=== PATIENT | male | born 1960 | race Caucasian/White ===

== ENCOUNTER 2017-12-12 05:46 | Inpatient (IN) | payer OTHER ==
[2017-12-12] MEDS ORDERED: SUCCINYLCHOLINE CHLORIDE 100 MG/5 ML SYG IV (07:00)
[2017-12-12] MEDS ORDERED: PROPOFOL 20 ML (10:24)
[2017-12-12] MEDS ORDERED: NEOSTIGMINE 3 MG/3 ML SYRINGE (10:24)
[2017-12-12] MEDS ORDERED: GLYCOPYRROLATE 0.4 MG INJ (10:24)
[2017-12-12] MEDS ORDERED: CEFAZOLIN 1 GM INJ (10:24)
[2017-12-12] MEDS ORDERED: ROCURONIUM 50 MG INJ (10:24)
[2017-12-12] MEDS ORDERED: FENTAnyl 50 MCG/ML VIAL (10:26)
[2017-12-12] MEDS ORDERED: MIDAZOLAM 1 MG/ML 2 ML INJ (10:26)
[2017-12-12] MEDS ORDERED: ONDANSETRON 4 MG INJ (10:26)
[2017-12-12] MEDS ORDERED: DEXAMETHASONE 4 MG/ML 1 ML INJ (10:26)
[2017-12-12] MEDS ORDERED: morphine SULFATE/PF (10 MG/10 ML) INJ (10:27)
[2017-12-12] MEDS ORDERED: ROPIVACAINE 0.2% 20 ML VIAL (11:16)
[2017-12-12] MEDS: BUPIVACAINE 0.25%/EPI (MDV) 50 ML VIAL INJ (11:39)
[2017-12-12] MEDS ORDERED: IPRATROPIUM (NEB) 0.5 MG/2.5 ML AMP HHN (12:00)
[2017-12-12] MEDS ORDERED: hydrALAzine 20 MG INJ IV (12:00)
[2017-12-12] MEDS ORDERED: HYDROmorphONE 1 MG/5 ML IV SYRINGE IV ×3 (12:00)
[2017-12-12] MEDS ORDERED: MIDAZOLAM 1 MG/ML 2 ML INJ IV (12:00)
[2017-12-12] MEDS ORDERED: ALBUTEROL 0.083% (NEB) 2.5 MG/3 ML AMP HHN (12:00)
[2017-12-12] MEDS ORDERED: EPHEDrine SULFATE 50 MG/5 ML SYG IV (12:00)
[2017-12-12] MEDS ORDERED: LABETALOL HCL 20MG INJ IV (12:00)
[2017-12-12] MEDS ORDERED: NALOXONE (0.4 MG/ML) INJ IV (12:00)
[2017-12-12] MEDS ORDERED: ONDANSETRON 4 MG INJ IV ×2 (12:00→15:00)
[2017-12-12] MEDS ORDERED: TRIMETHOBENZAMIDE 100 MG/ML VIAL IM (12:00)
[2017-12-12] MEDS ORDERED: MEPERIDINE 25 MG INJ IV (12:00)
[2017-12-12] MEDS ORDERED: OXYCODONE/ACETAMINOPHEN (5/325) TAB PO ×2 (12:00)
[2017-12-12] MEDS ORDERED: FENTAnyl 50 MCG/ML VIAL IV ×3 (12:00)
[2017-12-12] MEDS ORDERED: DIPHENHYDRAMINE 50 MG INJ IV (12:00)
[2017-12-12] MEDS: POLYMYXIN/BACITRACIN 1L IRRIG IRR (12:39)
[2017-12-12] MEDS ORDERED: SUGAMMADEX SODIUM 200 MG/2 ML VIAL IV ×2 (14:33→14:39)
[2017-12-12] MEDS: Discontinue current oral sulfonylureas (glyburide, glipizide, and/or glimepiride) prior to XX (15:00)
[2017-12-12] MEDS: HYPOGLYCEMIA PROTOCOL when Glucose is <70 mg/dL or symptomatic <90 mg/dL. XX (15:00)
[2017-12-12] MEDS ORDERED: ACETAMINOPHEN 325 MG TAB PO (15:00)
[2017-12-12] MEDS ORDERED: GLUCOSE GEL 15 GRAM TUBE BUCCAL (15:30)
[2017-12-12] MEDS ORDERED: GLUCOSE GEL 15 GRAM TUBE PO ×2 (15:30)
[2017-12-12] MEDS ORDERED: DEXTROSE 50% 50 ML SYRINGE IV ×2 (15:30)
[2017-12-12] MEDS ORDERED: GLUCAGON 1 MG INJ IM (15:30)
[2017-12-12] MEDS: SOD CHLORIDE 0.9% 1,000 ML IV (15:55)
[2017-12-12] MEDS ORDERED: morphine 2 MG INJ IV (16:30)
[2017-12-12] MEDS: ACCU-CHEK XX (17:30)
[2017-12-12] MEDS: INSULIN ASPART [NOVOLOG] 3 ML PEN SC ×2 (18:00→21:00)
[2017-12-12] MEDS: metFORMIN 500 MG TAB PO (18:00)
[2017-12-12] MEDS: FENTAnyl 2MCG/ML-ROPIV 0.2% 100 ML BAG EPI (21:25)
[2017-12-12] MEDS: DOCUSATE SODIUM 100 MG CAP PO (22:06)
[2017-12-12] MEDS: FAMOTIDINE 20 MG INJ IV (22:06)
[2017-12-13] MEDS: SOD CHLORIDE 0.9% 1,000 ML IV ×4 (00:39→20:39)
[2017-12-13] MEDS: ACCU-CHEK XX ×4 (01:41→17:53)
[2017-12-13] MEDS: FENTAnyl 2MCG/ML-ROPIV 0.2% 100 ML BAG EPI (05:45)
[2017-12-13 05:53] LABS: ADD MAN DIFF? NO
[2017-12-13 05:58] LABS: BASOPHILS % 0.3 % (0.0-2.0); HEMATOCRIT 35.9 % (42.0-52.0); HEMOGLOBIN 11.6 g/dl (14.0-18.0); LYMPHOCYTES # 0.9 10^3/ul (0.8-2.9); LYMPHOCYTES % 7.7 % (15.0-51.0); MEAN CORPUSCULAR HEMOGLOBIN 29.7 pg (29.0-33.0); MEAN CORPUSCULAR HGB CONC 32.3 g/dl (32.0-37.0); MEAN CORPUSCULAR VOLUME 92.1 fl (82.0-101.0); MEAN PLATELET VOLUME 9.7 fl (7.4-10.4); MONOCYTE # 0.9 10^3/ul (0.3-0.9); MONOCYTES % 7.6 % (0.0-11.0); NEUTROPHIL # 9.8 10^3/ul (1.6-7.5); NEUTROPHILS % 83.9 % (39.0-77.0); PLATELET COUNT 210 10^3/UL (140-415); RED CELL DISTRIBUTION WIDTH 13.3 % (11.5-14.5)
[2017-12-13 05:58] LABS: WHITE BLOOD COUNT 11.7 10^3/ul (4.8-10.8)
[2017-12-13 06:18] LABS: ANION GAP 11 (8-16); BLOOD UREA NITROGEN 8 mg/dl (7-20); CALCIUM 8.2 mg/dl (8.4-10.2); CARBON DIOXIDE 26 mmol/L (21-31); CHLORIDE 107 mmol/L (97-110); CREATININE 0.65 mg/dl (0.61-1.24); GLUCOSE 149 mg/dl (70-220); POTASSIUM 4.5 mmol/L (3.5-5.1); SODIUM 139 mmol/L (135-144)
[2017-12-13] MEDS: metFORMIN 500 MG TAB PO ×3 (07:50→17:55)
[2017-12-13] MEDS: DOCUSATE SODIUM 100 MG CAP PO ×3 (08:37→20:56)
[2017-12-13] MEDS: FAMOTIDINE 20 MG INJ IV ×2 (08:37→20:56)
[2017-12-13] MEDS: INSULIN ASPART [NOVOLOG] 3 ML PEN SC ×4 (08:57→21:00)
[2017-12-13] MEDS: ACETAMINOPHEN 1000MG/100ML IV 100 ML IVPB ×2 (10:03→16:03)
[2017-12-13] MEDS: HYDROCODONE/APAP (5/325) TAB PO ×2 (14:00→17:52)
[2017-12-13] MEDS: DIPHENHYDRAMINE 25 MG CAP PO (14:00)
[2017-12-13] MEDS: morphine LIQ (10 MG/5 ML) CUP PO ×2 (15:25→21:06)
[2017-12-14] MEDS: ACCU-CHEK XX ×4 (02:00→17:49)
[2017-12-14] MEDS: morphine LIQ (10 MG/5 ML) CUP PO ×2 (02:12→06:35)
[2017-12-14 05:35] LABS: ADD MAN DIFF? NO
[2017-12-14 05:48] LABS: WHITE BLOOD COUNT 8.5 10^3/ul (4.8-10.8)
[2017-12-14 05:48] LABS: BASOPHILS % 0.4 % (0.0-2.0); EOSINOPHILS % 0.1 % (0.0-7.0); HEMATOCRIT 35.1 % (42.0-52.0); LYMPHOCYTES # 1.6 10^3/ul (0.8-2.9); LYMPHOCYTES % 18.5 % (15.0-51.0); MEAN CORPUSCULAR HEMOGLOBIN 30.5 pg (29.0-33.0); MEAN CORPUSCULAR HGB CONC 34.2 g/dl (32.0-37.0); MEAN CORPUSCULAR VOLUME 89.1 fl (82.0-101.0); MEAN PLATELET VOLUME 10.1 fl (7.4-10.4); MONOCYTES % 11.6 % (0.0-11.0); NEUTROPHIL # 5.8 10^3/ul (1.6-7.5); NEUTROPHILS % 68.8 % (39.0-77.0); PLATELET COUNT 215 10^3/UL (140-415); RED BLOOD COUNT 3.94 10^6/ul (4.70-6.10); RED CELL DISTRIBUTION WIDTH 13.3 % (11.5-14.5)
[2017-12-14 06:28] LABS: ANION GAP 8 (8-16); BLOOD UREA NITROGEN 7 mg/dl (7-20); CALCIUM 8.2 mg/dl (8.4-10.2); CARBON DIOXIDE 27 mmol/L (21-31); CHLORIDE 108 mmol/L (97-110); CREATININE 0.75 mg/dl (0.61-1.24); GLUCOSE 166 mg/dl (70-220); POTASSIUM 3.4 mmol/L (3.5-5.1); SODIUM 140 mmol/L (135-144)
[2017-12-14] MEDS: SOD CHLORIDE 0.9% 1,000 ML IV ×2 (06:30→14:16)
[2017-12-14] MEDS: DOCUSATE SODIUM 100 MG CAP PO ×3 (08:44→20:42)
[2017-12-14] MEDS: metFORMIN 500 MG TAB PO ×2 (08:45→17:49)
[2017-12-14] MEDS: FAMOTIDINE 20 MG INJ IV ×2 (08:45→20:43)
[2017-12-14] MEDS: INSULIN ASPART [NOVOLOG] 3 ML PEN SC ×4 (09:25→22:36)
[2017-12-14] MEDS: HYDROCODONE/APAP (5/325) TAB PO ×4 (09:25→22:38)
[2017-12-14] MEDS: BISACODYL (EC) 5 MG TAB PO (12:31)
[2017-12-14] MEDS: POTASSIUM CHLORIDE (SR) 20 MEQ TAB PO (14:16)
[2017-12-15] MEDS: ACCU-CHEK XX ×4 (02:00→17:25)
[2017-12-15 05:07] LABS: WHITE BLOOD COUNT 7.3 10^3/ul (4.8-10.8)
[2017-12-15 05:07] LABS: ADD MAN DIFF? NO; BASOPHILS % 0.5 % (0.0-2.0); EOSINOPHILS # 0.2 10^3/ul (0.0-0.5); EOSINOPHILS % 2.2 % (0.0-7.0); HEMATOCRIT 36.4 % (42.0-52.0); HEMOGLOBIN 12.2 g/dl (14.0-18.0); LYMPHOCYTES # 1.9 10^3/ul (0.8-2.9); LYMPHOCYTES % 25.4 % (15.0-51.0); MEAN CORPUSCULAR HEMOGLOBIN 29.9 pg (29.0-33.0); MEAN CORPUSCULAR HGB CONC 33.5 g/dl (32.0-37.0); MEAN CORPUSCULAR VOLUME 89.2 fl (82.0-101.0); MEAN PLATELET VOLUME 9.6 fl (7.4-10.4); MONOCYTES % 13.1 % (0.0-11.0); NEUTROPHIL # 4.3 10^3/ul (1.6-7.5); NEUTROPHILS % 58.3 % (39.0-77.0); PLATELET COUNT 222 10^3/UL (140-415); RED BLOOD COUNT 4.08 10^6/ul (4.70-6.10); RED CELL DISTRIBUTION WIDTH 13.5 % (11.5-14.5)
[2017-12-15 05:44] LABS: ANION GAP 11 (8-16); BLOOD UREA NITROGEN 6 mg/dl (7-20); CALCIUM 8.6 mg/dl (8.4-10.2); CARBON DIOXIDE 27 mmol/L (21-31); CHLORIDE 105 mmol/L (97-110); CREATININE 0.68 mg/dl (0.61-1.24); GLUCOSE 130 mg/dl (70-220); POTASSIUM 3.8 mmol/L (3.5-5.1); SODIUM 139 mmol/L (135-144)
[2017-12-15] MEDS: HYDROCODONE/APAP (5/325) TAB PO ×4 (06:18→21:06)
[2017-12-15] MEDS: metFORMIN 500 MG TAB PO ×2 (07:50→17:55)
[2017-12-15] MEDS: INSULIN ASPART [NOVOLOG] 3 ML PEN SC ×4 (07:50→21:00)
[2017-12-15] MEDS: ENOXAPARIN 40 MG/0.4 ML SYG SC (09:00)
[2017-12-15] MEDS: DOCUSATE SODIUM 100 MG CAP PO ×3 (09:03→20:58)
[2017-12-15] MEDS: FAMOTIDINE 20 MG INJ IV ×2 (09:03→21:00)
[2017-12-15] MEDS: MAGNESIUM HYDROXIDE 30ML CUP PO (10:14)
[2017-12-16] MEDS: ACCU-CHEK XX ×4 (00:02→17:25)
[2017-12-16] MEDS: INSULIN ASPART [NOVOLOG] 3 ML PEN SC ×4 (08:00→20:29)
[2017-12-16] MEDS: metFORMIN 500 MG TAB PO ×2 (09:04→18:20)
[2017-12-16] MEDS: DOCUSATE SODIUM 100 MG CAP PO ×3 (09:04→20:09)
[2017-12-16] MEDS: FAMOTIDINE 20 MG INJ IV ×2 (09:05→20:29)
[2017-12-16] MEDS: ENOXAPARIN 40 MG/0.4 ML SYG SC (09:09)
[2017-12-16] MEDS: HYDROCODONE/APAP (5/325) TAB PO (09:47)
[2017-12-16] MEDS ORDERED: HYDROCODONE/APAP (7.5/325) TAB PO (13:30)
[2017-12-16] MEDS: HYDROCODONE/APAP (7.5/325) TAB PO ×2 (13:56→20:02)
[2017-12-17] MEDS: HYDROCODONE/APAP (7.5/325) TAB PO ×4 (01:28→20:06)
[2017-12-17] MEDS: ACCU-CHEK XX ×4 (02:00→18:00)
[2017-12-17] MEDS: INSULIN ASPART [NOVOLOG] 3 ML PEN SC ×4 (07:50→21:00)
[2017-12-17] MEDS: metFORMIN 500 MG TAB PO ×2 (08:57→17:59)
[2017-12-17] MEDS: DOCUSATE SODIUM 100 MG CAP PO ×3 (08:57→21:13)
[2017-12-17] MEDS: FAMOTIDINE 20 MG INJ IV (09:00)
[2017-12-17] MEDS: ENOXAPARIN 40 MG/0.4 ML SYG SC (09:01)
[2017-12-17] MEDS: FAMOTIDINE 20 MG TAB PO (21:13)
[2017-12-18] MEDS: HYDROCODONE/APAP (7.5/325) TAB PO ×4 (01:31→19:36)
[2017-12-18] MEDS: ACCU-CHEK XX ×4 (02:00→17:43)
[2017-12-18] MEDS: INSULIN ASPART [NOVOLOG] 3 ML PEN SC ×4 (09:01→21:00)
[2017-12-18] MEDS: metFORMIN 500 MG TAB PO ×2 (09:30→17:50)
[2017-12-18] MEDS: DOCUSATE SODIUM 100 MG CAP PO ×3 (09:31→20:21)
[2017-12-18] MEDS: FAMOTIDINE 20 MG TAB PO ×2 (09:31→20:21)
[2017-12-18] MEDS: ENOXAPARIN 40 MG/0.4 ML SYG SC (09:33)
[2017-12-19] MEDS: HYDROCODONE/APAP (7.5/325) TAB PO ×3 (01:43→13:30)
[2017-12-19] MEDS: ACCU-CHEK XX ×3 (01:44→11:10)
[2017-12-19] MEDS: DOCUSATE SODIUM 100 MG CAP PO ×2 (08:26→12:42)
[2017-12-19] MEDS: FAMOTIDINE 20 MG TAB PO (08:26)
[2017-12-19] MEDS: metFORMIN 500 MG TAB PO (08:26)
[2017-12-19] MEDS: ENOXAPARIN 40 MG/0.4 ML SYG SC (08:38)
[2017-12-19] MEDS: INSULIN ASPART [NOVOLOG] 3 ML PEN SC ×2 (08:39→12:50)
[2017-12-19 14:10] LABS: ADD MAN DIFF? NO
[2017-12-19 14:12] LABS: BASOPHIL # 0.1 10^3/ul (0.0-0.1); BASOPHILS % 0.6 % (0.0-2.0); EOSINOPHILS # 0.2 10^3/ul (0.0-0.5); HEMATOCRIT 38.3 % (42.0-52.0); HEMOGLOBIN 12.8 g/dl (14.0-18.0); LYMPHOCYTES # 1.7 10^3/ul (0.8-2.9); LYMPHOCYTES % 19.8 % (15.0-51.0); MEAN CORPUSCULAR HEMOGLOBIN 29.7 pg (29.0-33.0); MEAN CORPUSCULAR HGB CONC 33.4 g/dl (32.0-37.0); MEAN CORPUSCULAR VOLUME 88.9 fl (82.0-101.0); MEAN PLATELET VOLUME 8.9 fl (7.4-10.4); MONOCYTE # 0.7 10^3/ul (0.3-0.9); MONOCYTES % 7.5 % (0.0-11.0); NEUTROPHILS % 69.5 % (39.0-77.0); PLATELET COUNT 290 10^3/UL (140-415); RED BLOOD COUNT 4.31 10^6/ul (4.70-6.10); RED CELL DISTRIBUTION WIDTH 13.4 % (11.5-14.5)
[2017-12-19 14:12] LABS: WHITE BLOOD COUNT 8.6 10^3/ul (4.8-10.8)
[2017-12-19 14:31] LABS: ANION GAP 15 (8-16); BLOOD UREA NITROGEN 14 mg/dl (7-20); CARBON DIOXIDE 23 mmol/L (21-31); CHLORIDE 104 mmol/L (97-110); GLUCOSE 198 mg/dl (70-220); POTASSIUM 4.2 mmol/L (3.5-5.1); SODIUM 138 mmol/L (135-144)
== END 2017-12-19 15:20 | disposition home or self-care (01) | DRG 355 ==
LOC: REC 05:46 → MS1 20:40
PROVIDERS: Surgery
PROC: 0WUF0JZ Supplement Abdominal Wall with Synthetic Substitute, Open Approach (ICD-10-PCS; principal; 2017-12-12 07:30)
DX: K43.2 Incisional hernia without obstruction or gangrene (principal); E66.9 Obesity, unspecified; Z68.36 Body mass index [BMI] 36.0-36.9, adult; E11.9 Type 2 diabetes mellitus without complications; K21.9 Gastro-esophageal reflux disease without esophagitis; K66.0 Peritoneal adhesions (postprocedural) (postinfection); I10 Essential (primary) hypertension
CPT/HCPCS: 80048; 82962; 85025; 86850; 86900; 86901; 87086; 88302; 97110; 97116; 97162

== ENCOUNTER 2018-01-18 10:07 | Inpatient (IN) | payer OTHER ==
[2018-01-18] MEDS: PIPER-TAZO 3.375 GM IV (PMX) 100 ML IVPB ×3 (10:40→23:47)
[2018-01-18] MEDS: SODIUM CHLORIDE 0.9% 1L BAG IV* (10:41)
[2018-01-18 10:56] LABS: ADD MAN DIFF? NO
[2018-01-18 10:58] LABS: BASOPHIL # 0.1 10^3/ul (0.0-0.1); BASOPHILS % 0.8 % (0.0-2.0); EOSINOPHILS # 0.2 10^3/ul (0.0-0.5); EOSINOPHILS % 1.8 % (0.0-7.0); HEMATOCRIT 33.6 % (42.0-52.0); LYMPHOCYTES # 2.2 10^3/ul (0.8-2.9); LYMPHOCYTES % 20.8 % (15.0-51.0); MEAN CORPUSCULAR HEMOGLOBIN 28.8 pg (29.0-33.0); MEAN CORPUSCULAR HGB CONC 32.7 g/dl (32.0-37.0); MEAN PLATELET VOLUME 8.4 fl (7.4-10.4); MONOCYTE # 1.1 10^3/ul (0.3-0.9); MONOCYTES % 10.1 % (0.0-11.0); NEUTROPHIL # 6.8 10^3/ul (1.6-7.5); NEUTROPHILS % 66.1 % (39.0-77.0); PLATELET COUNT 571 10^3/UL (140-415); RED BLOOD COUNT 3.82 10^6/ul (4.70-6.10); RED CELL DISTRIBUTION WIDTH 13.1 % (11.5-14.5)
[2018-01-18 10:58] LABS: WHITE BLOOD COUNT 10.4 10^3/ul (4.8-10.8)
[2018-01-18] MEDS: morphine 10 MG INJ IV (11:15)
[2018-01-18 11:18] LABS: INR 1.04; PROTIME 13.7 Sec (11.9-14.9); PT RATIO 1.1
[2018-01-18 11:19] LABS: ADD UMIC YES; PARTIAL THROMBOPLASTIN TIME 34.8 Sec (25.0-35.0); UR ASCORBIC ACID 40 mg/dL (NEGATIVE); UR BILIRUBIN (Dip) NEGATIVE (NEGATIVE); UR BLOOD (Dip) NEGATIVE (NEGATIVE); UR CLARITY SLIGHTLY CLOUDY (CLEAR); UR COLOR AMBER (YELLOW); UR GLUCOSE (Dip) NEGATIVE (NEGATIVE); UR KETONES (Dip) TRACE mg/dL (NEGATIVE); UR LEUKOCYTE ESTERASE (Dip) NEGATIVE Leu/ul (NEGATIVE); UR MUCUS MANY /HPF (NONE SEEN); UR NITRITE (Dip) NEGATIVE (NEGATIVE); UR RBC 5 /HPF (0-5); UR SPECIFIC GRAVITY (Dip) 1.029 (1.003-1.030); UR TOTAL PROTEIN (Dip) 1+ mg/dl (NEGATIVE); UR UROBILINOGEN (Dip) 1+ mg/dL (NEGATIVE); UR WBC 3 /HPF (0-5)
[2018-01-18 11:27] LABS: ALANINE AMINOTRANSFERASE 42 IU/L (13-69); ALBUMIN 3.9 g/dl (3.3-4.9); ALBUMIN/GLOBULIN RATIO 0.86; ALKALINE PHOSPHATASE 143 IU/L (42-121); ANION GAP 18 (8-16); ASPARTATE AMINO TRANSFERASE 27 IU/L (15-46); BILIRUBIN,INDIRECT 0.5 mg/dl (0-1.1); BILIRUBIN,TOTAL 0.5 mg/dl (0.2-1.3); BLOOD UREA NITROGEN 8 mg/dl (7-20); CALCIUM 9.2 mg/dl (8.4-10.2); CARBON DIOXIDE 23 mmol/L (21-31); CHLORIDE 104 mmol/L (97-110); CREATININE 0.65 mg/dl (0.61-1.24); GLUCOSE 203 mg/dl (70-220); LIPASE 47 U/L (23-300); POTASSIUM 3.9 mmol/L (3.5-5.1); SODIUM 141 mmol/L (135-144); TOTAL PROTEIN 8.4 g/dl (6.1-8.1)
[2018-01-18 11:30] LABS: LACTIC ACID 2.9 mmol/L (0.5-2.0)
[2018-01-18] MEDS: VANCOMYCIN 1 GM (PMX) 250 ML IVPB (11:43)
[2018-01-18] MEDS ORDERED: ONDANSETRON 4 MG INJ IV (12:00)
[2018-01-18] MEDS ORDERED: ACETAMINOPHEN 325 MG TAB PO (12:00)
[2018-01-18 13:14] LABS: LACTIC ACID 1.4 mmol/L (0.5-2.0)
[2018-01-18] MEDS: LIDOCAINE 1% (MDV) 10 ML INJ (15:04)
[2018-01-18 15:49] LABS: LACTIC ACID 1.7 mmol/L (0.5-2.0)
[2018-01-18] MEDS: morphine 2 MG INJ IV (19:40)
[2018-01-19] MEDS: PIPER-TAZO 3.375 GM IV (PMX) 100 ML IVPB ×3 (05:26→18:00)
[2018-01-19] MEDS: ACETAMINOPHEN 325 MG TAB PO ×2 (06:22→18:50)
[2018-01-19 06:23] LABS: ADD MAN DIFF? NO
[2018-01-19] MEDS ORDERED: DEXTROSE 50% 50 ML SYRINGE IV ×2 (06:30)
[2018-01-19] MEDS ORDERED: GLUCAGON 1 MG INJ IM (06:30)
[2018-01-19] MEDS ORDERED: GLUCOSE GEL 15 GRAM TUBE BUCCAL (06:30)
[2018-01-19] MEDS ORDERED: GLUCOSE GEL 15 GRAM TUBE PO ×2 (06:30)
[2018-01-19 06:31] LABS: BASOPHIL # 0.1 10^3/ul (0.0-0.1); BASOPHILS % 0.8 % (0.0-2.0); EOSINOPHILS # 0.3 10^3/ul (0.0-0.5); EOSINOPHILS % 3.6 % (0.0-7.0); HEMATOCRIT 29.7 % (42.0-52.0); HEMOGLOBIN 9.4 g/dl (14.0-18.0); LYMPHOCYTES # 1.4 10^3/ul (0.8-2.9); LYMPHOCYTES % 19.5 % (15.0-51.0); MEAN CORPUSCULAR HEMOGLOBIN 27.8 pg (29.0-33.0); MEAN CORPUSCULAR HGB CONC 31.6 g/dl (32.0-37.0); MEAN CORPUSCULAR VOLUME 87.9 fl (82.0-101.0); MEAN PLATELET VOLUME 8.5 fl (7.4-10.4); MONOCYTE # 0.9 10^3/ul (0.3-0.9); MONOCYTES % 12.1 % (0.0-11.0); NEUTROPHIL # 4.6 10^3/ul (1.6-7.5); NEUTROPHILS % 63.6 % (39.0-77.0); PLATELET COUNT 496 10^3/UL (140-415); RED BLOOD COUNT 3.38 10^6/ul (4.70-6.10); RED CELL DISTRIBUTION WIDTH 13.4 % (11.5-14.5)
[2018-01-19 06:31] LABS: WHITE BLOOD COUNT 7.2 10^3/ul (4.8-10.8)
[2018-01-19 07:03] LABS: ANION GAP 9 (8-16); BLOOD UREA NITROGEN 6 mg/dl (7-20); CALCIUM 8.6 mg/dl (8.4-10.2); CARBON DIOXIDE 26 mmol/L (21-31); CHLORIDE 107 mmol/L (97-110); CREATININE 0.63 mg/dl (0.61-1.24); GLUCOSE 142 mg/dl (70-220); POTASSIUM 4.1 mmol/L (3.5-5.1); SODIUM 138 mmol/L (135-144)
[2018-01-19] MEDS: INSULIN ASPART [NOVOLOG] 3 ML PEN SC ×4 (07:53→21:25)
[2018-01-20] MEDS: PIPER-TAZO 3.375 GM IV (PMX) 100 ML IVPB ×4 (00:53→17:30)
[2018-01-20] MEDS: INSULIN ASPART [NOVOLOG] 3 ML PEN SC ×4 (08:29→20:33)
[2018-01-20] MEDS: ACETAMINOPHEN 325 MG TAB PO (17:30)
[2018-01-21] MEDS: PIPER-TAZO 3.375 GM IV (PMX) 100 ML IVPB ×4 (00:07→17:56)
[2018-01-21 05:57] LABS: ADD MAN DIFF? NO
[2018-01-21 06:01] LABS: BASOPHIL # 0.1 10^3/ul (0.0-0.1); BASOPHILS % 1.1 % (0.0-2.0); EOSINOPHILS # 0.4 10^3/ul (0.0-0.5); EOSINOPHILS % 6.5 % (0.0-7.0); HEMATOCRIT 33.7 % (42.0-52.0); HEMOGLOBIN 10.6 g/dl (14.0-18.0); LYMPHOCYTES # 1.6 10^3/ul (0.8-2.9); LYMPHOCYTES % 26.8 % (15.0-51.0); MEAN CORPUSCULAR HGB CONC 31.5 g/dl (32.0-37.0); MEAN CORPUSCULAR VOLUME 89.2 fl (82.0-101.0); MEAN PLATELET VOLUME 8.4 fl (7.4-10.4); MONOCYTE # 0.6 10^3/ul (0.3-0.9); NEUTROPHIL # 3.4 10^3/ul (1.6-7.5); NEUTROPHILS % 54.9 % (39.0-77.0); PLATELET COUNT 562 10^3/UL (140-415); RED BLOOD COUNT 3.78 10^6/ul (4.70-6.10); RED CELL DISTRIBUTION WIDTH 13.3 % (11.5-14.5)
[2018-01-21 06:01] LABS: WHITE BLOOD COUNT 6.1 10^3/ul (4.8-10.8)
[2018-01-21 06:18] LABS: ANION GAP 11 (8-16); BLOOD UREA NITROGEN 9 mg/dl (7-20); CALCIUM 9.1 mg/dl (8.4-10.2); CARBON DIOXIDE 25 mmol/L (21-31); CHLORIDE 110 mmol/L (97-110); CREATININE 0.76 mg/dl (0.61-1.24); GLUCOSE 145 mg/dl (70-220); POTASSIUM 4.3 mmol/L (3.5-5.1); SODIUM 142 mmol/L (135-144)
[2018-01-21] MEDS: INSULIN ASPART [NOVOLOG] 3 ML PEN SC ×4 (08:03→21:00)
[2018-01-21] MEDS: ENOXAPARIN 40 MG/0.4 ML SYG SC (09:19)
[2018-01-21] MEDS: ACETAMINOPHEN 325 MG TAB PO ×2 (09:32→19:21)
[2018-01-21] MEDS ORDERED: HYDROCODONE/APAP (5/325) TAB PO (10:30)
[2018-01-22] MEDS: PIPER-TAZO 3.375 GM IV (PMX) 100 ML IVPB ×5 (00:19→23:34)
[2018-01-22] MEDS: INSULIN ASPART [NOVOLOG] 3 ML PEN SC ×4 (08:13→20:12)
[2018-01-22] MEDS: ACETAMINOPHEN 325 MG TAB PO ×2 (08:56→20:07)
[2018-01-22] MEDS: ENOXAPARIN 40 MG/0.4 ML SYG SC (09:02)
[2018-01-22] MEDS: IODIXANOL LOCM 100 ML BTL (17:25)
[2018-01-22] MEDS: SOD CHLORIDE 0.9% 100 ML (17:25)
[2018-01-23] MEDS: PIPER-TAZO 3.375 GM IV (PMX) 100 ML IVPB ×3 (05:28→17:36)
[2018-01-23 06:01] LABS: ADD MAN DIFF? NO
[2018-01-23 06:05] LABS: WHITE BLOOD COUNT 5.9 10^3/ul (4.8-10.8)
[2018-01-23 06:05] LABS: BASOPHIL # 0.1 10^3/ul (0.0-0.1); BASOPHILS % 1.5 % (0.0-2.0); EOSINOPHILS # 0.4 10^3/ul (0.0-0.5); EOSINOPHILS % 6.3 % (0.0-7.0); HEMATOCRIT 33.9 % (42.0-52.0); HEMOGLOBIN 10.5 g/dl (14.0-18.0); LYMPHOCYTES # 1.6 10^3/ul (0.8-2.9); LYMPHOCYTES % 26.5 % (15.0-51.0); MEAN CORPUSCULAR HEMOGLOBIN 27.3 pg (29.0-33.0); MEAN CORPUSCULAR VOLUME 88.3 fl (82.0-101.0); MEAN PLATELET VOLUME 8.1 fl (7.4-10.4); MONOCYTE # 0.7 10^3/ul (0.3-0.9); MONOCYTES % 11.3 % (0.0-11.0); NEUTROPHIL # 3.1 10^3/ul (1.6-7.5); NEUTROPHILS % 53.7 % (39.0-77.0); PLATELET COUNT 516 10^3/UL (140-415); RED BLOOD COUNT 3.84 10^6/ul (4.70-6.10); RED CELL DISTRIBUTION WIDTH 13.8 % (11.5-14.5)
[2018-01-23 06:24] LABS: ANION GAP 12 (8-16); BLOOD UREA NITROGEN 9 mg/dl (7-20); CALCIUM 9.1 mg/dl (8.4-10.2); CARBON DIOXIDE 24 mmol/L (21-31); CHLORIDE 109 mmol/L (97-110); CREATININE 0.73 mg/dl (0.61-1.24); GLUCOSE 131 mg/dl (70-220); POTASSIUM 4.1 mmol/L (3.5-5.1); SODIUM 141 mmol/L (135-144)
[2018-01-23] MEDS: INSULIN ASPART [NOVOLOG] 3 ML PEN SC ×4 (07:56→20:41)
[2018-01-23] MEDS: ENOXAPARIN 40 MG/0.4 ML SYG SC (07:59)
[2018-01-23] MEDS: ACETAMINOPHEN 325 MG TAB PO (20:34)
[2018-01-24] MEDS: PIPER-TAZO 3.375 GM IV (PMX) 100 ML IVPB ×4 (00:18→17:11)
[2018-01-24] MEDS: INSULIN ASPART [NOVOLOG] 3 ML PEN SC ×4 (07:35→21:00)
[2018-01-24] MEDS: ENOXAPARIN 40 MG/0.4 ML SYG SC (07:37)
[2018-01-24] MEDS: ACETAMINOPHEN 325 MG TAB PO (20:42)
[2018-01-25] MEDS: PIPER-TAZO 3.375 GM IV (PMX) 100 ML IVPB ×3 (00:14→12:04)
[2018-01-25] MEDS: INSULIN ASPART [NOVOLOG] 3 ML PEN SC ×4 (08:02→20:39)
[2018-01-25] MEDS: ENOXAPARIN 40 MG/0.4 ML SYG SC (08:23)
[2018-01-25] MEDS: CIPROFLOXACIN 400MG/D5W 200 ML IVPB ×2 (18:50→20:21)
[2018-01-25] MEDS: ACETAMINOPHEN 325 MG TAB PO (19:29)
[2018-01-25] MEDS ORDERED: CIPROFLOXACIN 400MG/D5W 200 ML IVPB (21:00)
[2018-01-26] MEDS: INSULIN ASPART [NOVOLOG] 3 ML PEN SC ×4 (07:55→20:35)
[2018-01-26] MEDS: ENOXAPARIN 40 MG/0.4 ML SYG SC (08:28)
[2018-01-26] MEDS: CIPROFLOXACIN 400MG/D5W 200 ML IVPB ×2 (08:28→20:35)
[2018-01-27 06:10] LABS: ADD MAN DIFF? NO
[2018-01-27 06:16] LABS: BASOPHIL # 0.1 10^3/ul (0.0-0.1); BASOPHILS % 1.5 % (0.0-2.0); EOSINOPHILS # 0.5 10^3/ul (0.0-0.5); EOSINOPHILS % 7.2 % (0.0-7.0); HEMATOCRIT 36.8 % (42.0-52.0); HEMOGLOBIN 11.7 g/dl (14.0-18.0); LYMPHOCYTES # 1.7 10^3/ul (0.8-2.9); LYMPHOCYTES % 25.1 % (15.0-51.0); MEAN CORPUSCULAR HEMOGLOBIN 28.6 pg (29.0-33.0); MEAN CORPUSCULAR HGB CONC 31.8 g/dl (32.0-37.0); MEAN PLATELET VOLUME 8.5 fl (7.4-10.4); MONOCYTE # 0.8 10^3/ul (0.3-0.9); MONOCYTES % 11.1 % (0.0-11.0); NEUTROPHIL # 3.8 10^3/ul (1.6-7.5); NEUTROPHILS % 54.7 % (39.0-77.0); PLATELET COUNT 442 10^3/UL (140-415); RED BLOOD COUNT 4.09 10^6/ul (4.70-6.10); RED CELL DISTRIBUTION WIDTH 14.9 % (11.5-14.5)
[2018-01-27 06:16] LABS: WHITE BLOOD COUNT 6.9 10^3/ul (4.8-10.8)
[2018-01-27 06:46] LABS: ANION GAP 14 (8-16); BLOOD UREA NITROGEN 10 mg/dl (7-20); CALCIUM 9.2 mg/dl (8.4-10.2); CARBON DIOXIDE 21 mmol/L (21-31); CHLORIDE 111 mmol/L (97-110); CREATININE 0.69 mg/dl (0.61-1.24); GLUCOSE 128 mg/dl (70-220); POTASSIUM 4.2 mmol/L (3.5-5.1); SODIUM 142 mmol/L (135-144)
[2018-01-27] MEDS: INSULIN ASPART [NOVOLOG] 3 ML PEN SC ×4 (08:04→21:00)
[2018-01-27] MEDS: CIPROFLOXACIN 400MG/D5W 200 ML IVPB ×2 (08:04→21:24)
[2018-01-27] MEDS: ENOXAPARIN 40 MG/0.4 ML SYG SC (08:07)
[2018-01-28] MEDS: CIPROFLOXACIN 500 MG TAB PO ×2 (05:56→17:31)
[2018-01-28] MEDS: INSULIN ASPART [NOVOLOG] 3 ML PEN SC ×4 (08:15→22:08)
[2018-01-28] MEDS: ENOXAPARIN 40 MG/0.4 ML SYG SC (08:31)
[2018-01-29] MEDS: CIPROFLOXACIN 500 MG TAB PO ×2 (05:26→17:38)
[2018-01-29 05:48] LABS: ADD MAN DIFF? NO
[2018-01-29 05:49] LABS: WHITE BLOOD COUNT 6.2 10^3/ul (4.8-10.8)
[2018-01-29 05:49] LABS: BASOPHIL # 0.1 10^3/ul (0.0-0.1); BASOPHILS % 1.8 % (0.0-2.0); EOSINOPHILS # 0.5 10^3/ul (0.0-0.5); EOSINOPHILS % 7.9 % (0.0-7.0); HEMATOCRIT 35.9 % (42.0-52.0); HEMOGLOBIN 11.5 g/dl (14.0-18.0); LYMPHOCYTES # 1.6 10^3/ul (0.8-2.9); LYMPHOCYTES % 25.6 % (15.0-51.0); MEAN CORPUSCULAR HEMOGLOBIN 28.8 pg (29.0-33.0); MEAN CORPUSCULAR VOLUME 89.8 fl (82.0-101.0); MEAN PLATELET VOLUME 8.6 fl (7.4-10.4); MONOCYTE # 0.7 10^3/ul (0.3-0.9); MONOCYTES % 11.3 % (0.0-11.0); NEUTROPHIL # 3.3 10^3/ul (1.6-7.5); NEUTROPHILS % 52.9 % (39.0-77.0); PLATELET COUNT 393 10^3/UL (140-415)
[2018-01-29] MEDS: INSULIN ASPART [NOVOLOG] 3 ML PEN SC ×4 (08:15→20:59)
[2018-01-29] MEDS: ENOXAPARIN 40 MG/0.4 ML SYG SC (08:26)
[2018-01-30] MEDS: CIPROFLOXACIN 500 MG TAB PO (05:51)
[2018-01-30] MEDS: INSULIN ASPART [NOVOLOG] 3 ML PEN SC ×2 (08:02→11:50)
[2018-01-30] MEDS: ENOXAPARIN 40 MG/0.4 ML SYG SC (08:04)
== END 2018-01-30 15:35 | disposition home or self-care (01) | DRG 857 ==
LOC: E/R 10:07 → MS2 11:43
PROC: 0W9F3ZX Drainage of Abdominal Wall, Percutaneous Approach, Diagnostic (ICD-10-PCS; principal; 2018-01-18)
DX: T81.4XXA Infection following a procedure, initial encounter (principal); L02.211 Cutaneous abscess of abdominal wall; L76.34 Postprocedural seroma of skin and subcutaneous tissue following other procedure; L76.32 Postprocedural hematoma of skin and subcutaneous tissue following other procedure; L03.311 Cellulitis of abdominal wall; E11.9 Type 2 diabetes mellitus without complications; I10 Essential (primary) hypertension; B95.61 Methicillin susceptible Staphylococcus aureus infection as the cause of diseases classified elsewhere
CPT/HCPCS: 36415; 71045; 74176; 74177; 80048; 80053; 81001; 82962; 83605; 83690; 85025; 85610; 85730; 87040; 87070; 87075; 87086; 87102; 87116; 96374; 96375; 99291-25

== ENCOUNTER 2018-09-28 15:31 | Emergency (ER) | payer OTHER ==
[2018-09-28] MEDS: KETOROLAC 60 MG INJ IM (17:11)
== END 2018-09-28 18:38 | disposition home or self-care (01) ==
LOC: FTE 15:31
DX: S89.91XA Unspecified injury of right lower leg, initial encounter (principal); X50.1XXA Overexertion from prolonged static or awkward postures, initial encounter; Y92.9 Unspecified place or not applicable; Z79.84 Long term (current) use of oral hypoglycemic drugs; Z87.891 Personal history of nicotine dependence
CPT/HCPCS: 29505; 73562; 96372; 99284-25